=== PATIENT | male | born 1935 | race Hispanic/Latino ===

== ENCOUNTER 2016-10-04 09:46 | Observation (INO) | payer MEDICARE, MEDICAID ==
[2016-10-04] VITALS (10 sets, daily range): BP systolic 152–191; BP diastolic 67–90; PULSE 66–77; RESP 16–19; O2SAT 97–98
[~2016-10-04] VITALS: Ht 162.6 cm; Wt 82.6 kg
--- NOTE | 2016-10-04 10:12 | ED.REPORT ---
HPI-Neurologic Deficit Date of Service Oct 04, 2016 ED Provider: The patient is an 81 year old male with history of diabetes mellitus, hypertension, hyperlipidemia, chronic headaches, subdural hematoma in 2003, and intraparenchymal hypertensive hemorrhage in 2012, who was sent to the emergency department for confusion. The patient was seen at [facility] this morning for a normal appointment but was unable to answer questions appropriately. The patient states they asked him what medication he took this morning but he was unable to answer this question. He states, "I knew what I wanted to saw but I couldn't get it out." While walking to the clinic this morning he felt "off- balance." He has also noticed mild neck/occipital pain. Otherwise at this time he feels better. His blood sugar was 169 this morning. He did not eat breakfast and took Metformin this morning and that may have been the cause for this. He states, "last week I lost my vision while at the store." He thought this was due to low blood sugars but did not get a reading at that time. This lasted for about 10 minutes and after he ate a piece of chocolate his vision started to improve. He denies fever, chills, cough, congestion, shortness of breath, abdominal pain , nausea, vomiting or diarrhea. 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 Arrived By: Walk-in Sudden in Onset?: No Onset Occurred: 1 - 4 hours ago Symptom Duration: 1 - 4 hours Progression Since Onset: Gradually improving Location: : Head: Neck Quality: Painful Severity: Current: Mild Severity: Maximum: Moderate Recent Healthcare: No recent hospitalization, Recent doctor visit Risk Factors NIH Stroke Scale Level of Consciousness: Alert and responsive (0) Ask Month & Age: Both questions right (0) Open/Close Eyes/Hand Event Management Consultant: Performs both tasks (0) Horizontal EO Movements: None (0) Visual Bowers: No visual loss (0) Facial Palsy: Normal symmetry (0) Right Arm Motor Drift (10s): No drift 10 sec (0) Left Arm Motor Drift (10s): No drift 10 sec (0) Right Leg Motor Drift (5s): No drift 5 sec (0) Left Leg Motor Drift (5s): No drift 5 sec (0) Limb Ataxia FNF/Heel-Alfonso: No ataxia (0) Sensation (Arms/Legs/Face): No sensory loss (0) Language Aphasia: No aphasia, normal (0) Dysarthria: No dysarthria, normal (0) Extinction/Inattention: No exctinct/inattent (0) NIHSS Score: 0 Time NIHSS Performed: 10:22 Date NIHSS Performed: Oct 04, 2016 Past Medical History Past Medical History Chronic headache Subdural hematoma 2003 Intraparenchymal hypertensive hemorrhage 2012 Reports: Diabetes mellitus, Hyperlipidemia, Hypertension Past Surgical History brain surgery 2002 Family History Noncontributory Smoking History Never Smoker Social History Alcohol Use: Denies alcohol use Drug Use: Denies drug use Other Social History: Good social support, Local resident Ambulatory Status Independent Review of Systems Review of Systems Note: +difficulty getting words out Constitutional: Denies: Chills, Fever Respiratory: Denies: Non-productive cough, Shortness of breath GI: Denies: Abdominal pain, Diarrhea, Nausea, Vomiting Musculoskeletal: Reports: Neck pain Neurologic: Reports: Confusion, Headache, Vision change (last week) Complete sys rev & neg: except as marked. Ears / Nose / Throat: Denies: Nasal congestion Physical Exam Initial Vital Signs Vital Signs (First) Date Time Temp Pulse Resp B/P Pulse Ox O2 Delivery O2 Flow Rate FiO2 10/04/16 09:54 36.6 73 18 191/90 98 10/04/16 11:50 Room Air Initial VS: Reviewed ENT: Mucous membranes moist, Conjunctiva normal, No scleral icterus Neck: Supple, Non-tender, Full range of motion Abdomen / GI: Soft, Non-tender, No guarding, No rebound, No distention Lymphatic: No lymphadenopathy Extremities: Vascular intact, Neuro intact, No swelling, No tenderness Skin: Warm, Dry, No cyanosis Psychiatric: Mood/affect normal, Behavior normal, Normal thought content General/Constitutional: Awake, Alert, No acute distress, Cooperative Head / Eyes: Atraumatic, Normocephalic, PERRL, EOMI, No nystagmus Respiratory / Chest: Atraumatic, Breath sounds NL, Breath sounds = bilat, No respiratory distress, No rales, No rhonchi, No wheezing Cardiovascular: Heart rate NL, Regular rhythm, Heart sounds NL, No gallop, No murmurs, No rubs, Peripheral circulation NL Neurologic: Oriented X3, Speech NL, No motor deficits, No sensory deficits, CN II - XII intact, Cerebellar NL, Memory NL NIH stroke scale: 0 Interpretation & Diagnostics Lab Results Interpretation Result Diagram: 10/04/16 1030 10/04/16 1030 Test 10/04/16 10:30 10/04/16 11:40 White Blood Count 7.1th/mm3 (3.8-10.1) Red Blood Count 4.98mil/mm3 (4.40-5.80) Hemoglobin 14.2g/dL (13.8-17.2) Hematocrit 43.0% (41.0-50.0) Mean Corpuscular Volume 86.3fL (81-100) Mean Corpuscular Hemoglobin 28.5pg (27.0-35.0) Mean Corpuscular Hemoglobin Concent 33.0% (32.0-37.0) Red Cell Distribution Width 13.4% (12.3-15.4) Platelet Count 253bil/L (150-400) Neutrophils (%) (Auto) 65.2% (40-74) Lymphocytes (%) (Auto) 23.4% (14-46) Monocytes (%) (Auto) 8.3% (4-12) Eosinophils (%) (Auto) 2.4% (0-5) Basophils (%) (Auto) 0.6% (0-3) Sodium Level 139mEq/L (134-144) Potassium Level 4.2mEq/L (3.5-5.2) Chloride Level 103mEq/L (97-108) Carbon Dioxide Level 23mmol/L (18-29) Blood Urea Nitrogen 13mg/dL (8-27) Creatinine 0.79mg/dL (0.76-1.27) Estimat Glomerular Filtration Rate 100mL/min (>59) Glucose Level 179mg/dL (60-99) Calcium Level 8.9mg/dL (8.5-10.1) Magnesium Level 1.7mg/dL (1.6-2.6) Total Bilirubin 1.0mg/dL (0.0-1.2) Aspartate Amino Transf (AST/SGOT) 19U/L (0-50) Alanine Aminotransferase (ALT/SGPT) 17U/L (0-44) Alkaline Phosphatase 128U/L (25-160) Troponin T < 0.010ug/L (0.0-0.011) Total Protein 6.8g/dL (6.4-8.4) Albumin 3.9g/dL (3.4-5.0) Hold Roca Top Tube Received (Received) Urine Color Straw (YELLOW) Urine Appearance Hazy (CLEAR,HAZY) Urine pH 6.5 (5.0-8.0) Urine Specific [place] 1.010 (1.003-1.035) Urine Protein Negativemg/dL (NEG,TRACE) Urine Glucose (UA) Negativemg/dL (NEGATIVE) Urine Ketones Negativemg/dL (NEGATIVE) Urine Occult Blood Negative (NEGATIVE) Urine Nitrite Negative (NEGATIVE) Urine Bilirubin Negative (NEGATIVE) Urine Urobilinogen Normalmg/dL (NORMAL) Urine Leukocyte Esterase Negative (NEGATIVE) Urine RBC 0-2/hpf (0-2) Urine WBC 0-5/hpf (0-5) Urine Epithelial Cells Occasional/hpf (NONE-MOD) Urine Crystals None seen (NONE SEEN) Urine Bacteria None/hpf (NONE-FEW) Urine Hyaline Casts None/lpf (NONE) Urine Granular Casts None seen (NONE SEEN) Urine Waxy Casts None seen (NONE SEEN) Urine Red Blood Cell Casts None seen (NONE SEEN) Urine White Blood Cell Casts None seen (NONE SEEN) Urine Mucus None seen (None Seen) Urine Trichomonas None seen (NONE SEEN) Urine Yeast None (NONE SEEN) Urinalysis Comment None Urine Culture Reflexed Not indicated ECG Interpretation ECG Interpretation: Normal sinus rhythm with a rate of 65 Time: 10:26 Interpreted by: ED physician X-Ray Chest Interpretation Chest Xray Interpretation: IMPRESSION: No acute cardiopulmonary disease. Dictated by: Jorden ZIMMERMAN Interpreted: Sky Meehan MD on 10/04/2016 at 12:23 Interpretation / Wet Read by: Interpret - Radiologist CT Head Interpretation IMPRESSION: 1. No acute intracranial abnormality. 2. Age-related atrophy and chronic deep white matter ischemic changes, appearing unchanged. Dictated by: Migel Meehan M.D. on 10/04/2016 at 11:19 Study: Head CT no contrast Interpretation / Wet Read by: Interpret - Radiologist Re-Eval/Medical Decision Med Decision/Clinical Course Symptoms are somewhat concerning for TIA. The patient's presentation to the primary care office was concerning enough to warrant emergent transfer to the ER for a stroke workup however upon arrival and evaluation his symptoms had resolved. This along with an episode of vision change and dizziness a week ago may represent TIAs. Patient will be admitted for further stroke evaluation. Source of Hx: Old records, Family, Private physician Re-Evaluation/Progress #1: Time of Eval: 11:44 Re-Evaluation/Progress Note: Rechecked the patient. Re-Evaluation/Progress #2: Time of Eval: 11:56 Re-Evaluation/Progress Note: Discussed results, diagnosis, and plan for admission. All questions were addressed. Consultation : Referral / Consult Name: Greer Metcalf MD Consulted With: Hospitalist Call Returned at: 12:27 Porcelain Enamel Installer: Will see patient, Agrees with eval, Agrees with plan, Accepts admit Counseled Regarding: Diagnosis, Lab results, Need for admission Discharge & Departure Impression: Primary Impression: TIA (transient ischemic attack) Transient cerebral ischemia type: unspecified Qualified Code: G45.9 - Transient cerebral ischemic attack, unspecified Disposition: ADMITTED TO HOSPITAL Discharge Condition All VS Reviewed: Yes Condition: Stable Referrals: Romaine Cunningham MD (PCP) Scribe Attestation Portions of this note were transcribed by Michelle Lewis. I, Dr. Kelly personally performed the history, physical exam and medical decision-making; I reviewed and confirmed the accuracy of the information in the transcribed note. Signed by: Agnes Colón, 10/04/2016 and 1230. copies to: Romaine Cunningham MD, Timothy S DO Oct 04, 2016 10:12 Michelle Lewis Oct 04, 2016 10:28
[2016-10-04 10:44] LABS: BASOPHILS % (AUTO) 0.6 % (0-3); EOSINOPHILS % (AUTO) 2.4 % (0-5); MONOCYTES % (AUTO) 8.3 % (4-12); Mean Corpuscular Hemoglobin 28.5 pg (27.0-35.0); Mean Corpuscular Volume 86.3 fL (81-100); NEUTROPHILS % (AUTO) 65.2 % (40-74); Platelet Count 253 bil/L (150-400)
[2016-10-04 11:16] LABS: Magnesium 1.7 mg/dL (1.6-2.6)
[2016-10-04 11:22] LABS: TROPONIN T < 0.010 ug/L (0.0-0.011)
--- NOTE | 2016-10-04 11:24 | DRSVH ---
PROCEDURE: CT BRAIN WITHOUT CONTRAST ([id number]) INDICATIONS: confusion, h/o ICH TECHNIQUE: Noncontrast 4.5 mm thick angled axial sections acquired from the foramen magnum to the vertex, with c oronal reformats. COMPARISON: CT brain 10/05/2014, 02/23/2014, 11/05/2012, 12/18/2009, 12/22/2003 FINDINGS: Image quality: Excellent. CSF spaces: Basal cisterns are patent. No extra-axial fluid collections. The ventricles are symmet jas in size and shape. Brain: No intracranial bleeds or masses. There is cerebral volume loss for age, with resultant vent ricular and sulcal prominence. There are periventricular and deep white matter chronic small vessel ischemic changes. There is intracranial internal carotid artery atherosclerosis. Skull and face: Calvarium and visualized facial bones appear intact, without suspicious lesions. Sinuses: Visualized sinuses and mastoids are clear. IMPRESSION: 1. No acute intracranial abnormality. 2. Age-related atrophy and chronic deep white matter ischemic changes, appearing unchanged. Dictated by: Migel Meehan M.D. on 10/04/2016 at 11:19 Approved by: Migel Meehan M.D. on 10/04/2016 at 11:22
[2016-10-04 12:06] LABS: APPEARANCE,URINE HAZY (CLEAR,HAZY); COLOR,URINE STRAW (YELLOW); OCCULT BLOOD,URINE NEGATIVE (NEGATIVE); PH,URINE 6.5 (5.0-8.0); UROBILINOGEN,URINE NORMAL (NORMAL)
[2016-10-04] MEDS ORDERED: [UNRECOGNIZED DRUG - CODE] (12:16)
[2016-10-04] MEDS ORDERED: LISI10TA (12:16)
--- NOTE | 2016-10-04 12:23 | DRSVH ---
PROCEDURE: X-RAY CHEST ONE VIEW, PORTABLE ([id number]) INDICATIONS: confusion TECHNIQUE: One view of the chest was acquired. COMPARISON: [facility], CR, CHEST 2VW, 11/16/2014, 12:53. [facility], CR, CH EST 1VW (PORTABLE), 11/05/2012, 12:52. FINDINGS: Surgical changes and devices: None. Lungs and pleura: No pleural effusions or pneumothorax. Lungs are clear. Mediastinum: Mediastinal contours appear normal. Heart size is normal. Bones and chest wall: No suspicious bony lesions. Overlying soft tissues appear unremarkable. IMPRESSION: No acute cardiopulmonary disease. Dictated by: Jorden ZIMMERMAN Interpreted: Sky Meehan MD on 10/04/2016 at 12:23 Transcribed by: NORMA on 10/04/2016 at 12:23 Approved by: Migel Meehan M.D. on 10/04/2016 at 14:17
[2016-10-04] MEDS ORDERED: Alum-Mag Hydrox-Simeth 30 mL Suspension PO PRN ×2 (13:10→15:05)
[2016-10-04] MEDS ORDERED: Ondansetron 2 mg/mL 2 mL Inj IVPUSH PRN (13:10)
--- NOTE | 2016-10-04 14:00 | NUR ---
Admit Admitted to floor. Pt denies pain and is A&Ox3. Pt is Malagasy-speaking only. Caption Writer called for admission. Pt instructed on how to contact nursing staff. Will continue to monitor.
--- NOTE | 2016-10-04 14:11 | NUR ---
Evaluation completed. Please go to "Notes" then click on "Assessments and Notes" (bottom left corner of screen). Then select appropriate discipline tab on top of screen.
[2016-10-04] MEDS ORDERED: METF1000 PO (14:33)
[2016-10-04] MEDS ORDERED: Polyethylene Glycol (PEG) 17 Gm Powder PO PRN (15:05)
[2016-10-04] MEDS ORDERED: Ondansetron 2 mg/mL 2 mL Inj IV PRN (15:05)
[2016-10-04] MEDS ORDERED: Glucose 40% Oral Gel 15 Gm Tube PO PRN (15:05)
--- NOTE | 2016-10-04 15:46 | PCM.HPMED ---
Subjective Date of Service Oct 04, 2016 Primary Provider: Admitting Physician: Greer Metcalf MD Primary Care Physician: Romaine Cunningham MD Attending Physician: Greer Metcalf MD Admit Status: From the Emergency Department, 23-Hour Observation, Admit to [facility], Remote Telemetry Chief Complaint: Episode of unable to formulate and say words History of Present Illness: This is an 81-year-old male who is speaking only. Tiller Man is present. History of type II diabetes hypertension hyperlipidemia. He is not exactly compliant with his medications. He did have a history of a subdural hematoma in 2003 and an intra-parenchymal hypertensive hemorrhage in 2012 he was at [facility] for his usual appointment for medication renewals and was unable to answer questions appropriately. He notes that that words would not come out. He also felt a little bit confused. He also felt somewhat lightheaded but not vertiginous. This lasted for about 3 hours. He was brought into the emergency room from [facility]. He has not been taking aspirin. He apparently has not been taking his lisinopril or metformin either as he has not been able to get it filled through [facility]. His evaluation in the emergency room includes CT of head without contrast shows no acute intracranial abnormality. There was noted age-related atrophy and chronic deep white matter ischemic changes which are appearing unchanged from previous. He also admits to a slight headache but this is improving. Review of Systems: All other review of systems are reviewed and are negative except for as in history of present illness. Denies any head injury denies any fevers chills. Denies any urinary frequency or burning. Denies any chest pain nausea or vomiting. Denied any leg or arm weakness. Allergies Coded Allergies: No Known Allergies (Verified , 10/04/16) Home Medications Metformin 1000 milligrams by mouth twice a day Lisinopril 10 mg by mouth daily PMH Past Medical History Chronic headache Subdural hematoma 2004 Intraparenchymal hypertensive hemorrhage 2012 Reports: Diabetes mellitus, Hyperlipidemia, Hypertension Past Surgical History brain surgery 2003 Family History History of type II diabetes and hypertension Social History Hx Alcohol Use: Yes ("not since I was young") Hx Substance Use: No Hx Tobacco Use: No Smoking Status: Never Smoker Living Arrangement: Alone Exam Vital Signs Vital Sign - Last Date Time Temp Pulse Resp B/P Pulse Ox O2 Delivery O2 Flow Rate FiO2 10/04/16 13:46 66 161/67 98 Room Air 10/04/16 11:50 19 10/04/16 09:54 36.6 Exam Constitutional: Elderly man in no acute distress Head: Normocephalic atraumatic Eyes: PERRLA DC EOMI Neck: No adenopathy carotids 2+ over 4 without bruits Mouth: No lesions Chest: Clear to auscultation Cor: Regular rate and rhythm S1-S2 without murmur Abdomen: Soft nontender bowel sounds present Extremities: No pedal edema Skin: No rashes noted Psych: Mood and affect are appropriate Neuro: Alert and oriented 3, motor and sensory are intact. Finger to nose is intact. Speech is normal. Lab and Diagnostics Labs Laboratory Tests 72 Hours Test 10/04/16 10:30 10/04/16 11:40 White Blood Count 7.1th/mm3 (3.8-10.1) Red Blood Count 4.98mil/mm3 (4.40-5.80) Hemoglobin 14.2g/dL (13.8-17.2) Hematocrit 43.0% (41.0-50.0) Mean Corpuscular Volume 86.3fL (81-100) Mean Corpuscular Hemoglobin 28.5pg (27.0-35.0) Mean Corpuscular Hemoglobin Concent 33.0% (32.0-37.0) Red Cell Distribution Width 13.4% (12.3-15.4) Platelet Count 253bil/L (150-400) Neutrophils (%) (Auto) 65.2% (40-74) Lymphocytes (%) (Auto) 23.4% (14-46) Monocytes (%) (Auto) 8.3% (4-12) Eosinophils (%) (Auto) 2.4% (0-5) Basophils (%) (Auto) 0.6% (0-3) Sodium Level 139mEq/L (134-144) Potassium Level 4.2mEq/L (3.5-5.2) Chloride Level 103mEq/L (97-108) Carbon Dioxide Level 23mmol/L (18-29) Blood Urea Nitrogen 13mg/dL (8-27) Creatinine 0.79mg/dL (0.76-1.27) Estimat Glomerular Filtration Rate 100mL/min (>59) Glucose Level 179mg/dL (60-99) Calcium Level 8.9mg/dL (8.5-10.1) Magnesium Level 1.7mg/dL (1.6-2.6) Total Bilirubin 1.0mg/dL (0.0-1.2) Aspartate Amino Transf (AST/SGOT) 19U/L (0-50) Alanine Aminotransferase (ALT/SGPT) 17U/L (0-44) Alkaline Phosphatase 128U/L (25-160) Troponin T < 0.010ug/L (0.0-0.011) Total Protein 6.8g/dL (6.4-8.4) Albumin 3.9g/dL (3.4-5.0) Hold Roca Top Tube Received (Received) Urine Color Straw (YELLOW) Urine Appearance Hazy (CLEAR,HAZY) Urine pH 6.5 (5.0-8.0) Urine Specific [place] 1.010 (1.003-1.035) Urine Protein Negativemg/dL (NEG,TRACE) Urine Glucose (UA) Negativemg/dL (NEGATIVE) Urine Ketones Negativemg/dL (NEGATIVE) Urine Occult Blood Negative (NEGATIVE) Urine Nitrite Negative (NEGATIVE) Urine Bilirubin Negative (NEGATIVE) Urine Urobilinogen Normalmg/dL (NORMAL) Urine Leukocyte Esterase Negative (NEGATIVE) Urine RBC 0-2/hpf (0-2) Urine WBC 0-5/hpf (0-5) Urine Epithelial Cells Occasional/hpf (NONE-MOD) Urine Crystals None seen (NONE SEEN) Urine Bacteria None/hpf (NONE-FEW) Urine Hyaline Casts None/lpf (NONE) Urine Granular Casts None seen (NONE SEEN) Urine Waxy Casts None seen (NONE SEEN) Urine Red Blood Cell Casts None seen (NONE SEEN) Urine White Blood Cell Casts None seen (NONE SEEN) Urine Mucus None seen (None Seen) Urine Trichomonas None seen (NONE SEEN) Urine Yeast None (NONE SEEN) Urinalysis Comment None Urine Culture Reflexed Not indicated Result Diagram: 10/04/16 1030 10/04/16 1030 X-Rays, CTs and MRIs PROCEDURE: CT BRAIN WITHOUT CONTRAST ([id number]) INDICATIONS: confusion, h/o ICH TECHNIQUE: Noncontrast 4.5 mm thick angled axial sections acquired from the foramen magnum to the vertex, with coronal reformats. COMPARISON: CT brain 10/05/2014, 02/23/2014, 11/05/2012, 12/18/2009, 12/22/2003 FINDINGS: Image quality: Excellent. CSF spaces: Basal cisterns are patent. No extra-axial fluid collections. The ventricles are symmetric in size and shape. Brain: No intracranial bleeds or masses. There is cerebral volume loss for age , with resultant ventricular and sulcal prominence. There are periventricular and deep white matter chronic small vessel ischemic changes. There is intracranial internal carotid artery atherosclerosis. Skull and face: Calvarium and visualized facial bones appear intact, without suspicious lesions. Sinuses: Visualized sinuses and mastoids are clear. IMPRESSION: 1. No acute intracranial abnormality. 2. Age-related atrophy and chronic deep white matter ischemic changes, appearing unchanged. Dictated by: Migel Meehan M.D. on 10/04/2016 at 11:19 Approved by: Migel Meehan M.D. on 10/04/2016 at 11:22 PROCEDURE: X-RAY CHEST ONE VIEW, PORTABLE ([id number]) INDICATIONS: confusion TECHNIQUE: One view of the chest was acquired. COMPARISON: [facility], , CHEST 2VW, 11/16/2014, 12:53. [facility], , CHEST 1VW (PORTABLE), 11/05/2012, 12:52. FINDINGS: Surgical changes and devices: None. Lungs and pleura: No pleural effusions or pneumothorax. Lungs are clear. Mediastinum: Mediastinal contours appear normal. Heart size is normal. Bones and chest wall: No suspicious bony lesions. Overlying soft tissues appear unremarkable. IMPRESSION: No acute cardiopulmonary disease. Dictated by: Jorden Boswell Jayjay Interpreted: Sky Meehan MD on 10/04/2016 at 12: 23 Transcribed by: NORMA on 10/04/2016 at 12:23 Approved by: Migel Meehan M.D. on 10/04/2016 at 14:17 12-lead ECG Normal sinus rhythm with rate of 65 Assessment & Plan # Possible TIA, present on admission, symptoms resolved Check CTA of brain and neck, MRI brain without contrast, echocardiogram. Placed on telemetry. Check fasting lipid panel. Initiate atorvastatin 40 mg by mouth daily and ASA 324 mg by mouth daily # Type II diabetes, present on admission, chronic We will hold metformin as will get IV contrast dye. We will place on subcutaneous insulin lispro protocol Check 4 times a day blood sugars Check hemoglobin A1c # Hypertension, present on admission, chronic Will reinstitute his lisinopril 10 mg by mouth daily starting tomorrow # DVT prophylaxis Placed on subcutaneous Lovenox # CODE STATUS Patient is full code. Time spent 60 minutes Greer Metcalf MD Oct 04, 2016 15:46
[2016-10-04] MEDS: Insulin LISPRO 300 Unit/3 mL Inj SUBQ SCH ×2 (17:22→21:31)
[2016-10-05] VITALS (8 sets, daily range): BP systolic 138–167; BP diastolic 66–87; PULSE 64–92; RESP 16; O2SAT 97–98
[2016-10-05] MEDS: Insulin LISPRO 300 Unit/3 mL Inj SUBQ SCH ×4 (08:33→20:41)
--- NOTE | 2016-10-05 09:05 | NUR ---
MRI Pt off floor for MRI.
--- NOTE | 2016-10-05 10:47 | DRSVH ---
PROCEDURE: MRI BRAIN WITHOUT CONTRAST ([id number]) INDICATIONS: 81 year-old male with TIA. TECHNIQUE: Non-contrast axial T1 spin echo, axial T2 fast spin echo, sagittal and axial FLAIR, coronal T2 fast s pin echo, axial gradient echo, axial diffusion and ADC through the brain. COMPARISON: [facility], CT, CT BRAIN WO CON, 10/04/2016, 11:05. [facility], CT, BRAIN W/O CONTRAST, 10/05/2014, 14:10. FINDINGS: Image quality: Excellent. CSF spaces: Ventricles appear symmetric in size and shape. Basal cisterns are patent. No extra-axi al fluid collections. Brain: No intracranial bleeds or mass effects. There is mild cerebral volume loss for age. There a re moderate periventricular and deep white matter chronic small vessel ischemic changes. Brainstem a ppears normal. Diffusion-weighted images show no acute ischemic insults. No chronic ischemic insult s. Normal intravascular flow voids are present. Skull and face: Calvarial bone marrow is normal in signal. Orbits are normal. Sinuses: There is a mucous retention cyst in the left maxillary sinus. The mastoids are clear. IMPRESSION: 1. No acute intracranial abnormalities. 2. Cerebral volume loss and chronic microvascular ischemic changes. 3. Left maxillary sinus mucous retention cyst. Dictated by: Adela Devries M.D. on 10/05/2016 at 10:39 Approved by: Adela Devries M.D. on 10/05/2016 at 10:46
--- NOTE | 2016-10-05 11:08 | NUR ---
Case Management: SAVI delivered (via diplomatic interpreter) and signed. Original placed in chart; copy left at bedside. Karla Garcia RN
--- NOTE | 2016-10-05 11:28 | PCM.PNMED ---
Subjective Date of Service Oct 05, 2016 Subjective Patient has had no symptoms since admitted here. He notes he is feeling fine. Exam Vital Signs Vital Sign - Last Date Time Temp Pulse Resp B/P Pulse Ox O2 Delivery O2 Flow Rate FiO2 10/05/16 10:04 92 10/05/16 08:30 167/86 98 Room Air 10/05/16 04:58 37.1 16 Intake and Output 10/04/16 10/04/16 10/05/16 Cumulative From/Thru 15:00 23:00 07:00 10/04/16 09:54 - 10/05/16 05:45 Intake Total 480 ml 250 ml 730 ml Balance 480 ml 250 ml 730 ml Intake Oral 480 ml 250 ml 730 ml # Voids 1 1 2 # Bowel Movements 0 0 Exam Constitutional: Elderly man in no acute distress Head: Normocephalic atraumatic Eyes: PERRLA DC EOMI Chest: Clear to auscultation Marquez: Regular rate and rhythm S1-S2 without murmur Abdomen: Soft nontender bowel sounds present Extremities: No pedal edema Neuro: Alert and oriented 3, motor strength is intact bilaterally, sensory is intact bilaterally. Speech and cognition appear intact. Lab and Diagnostics Laboratory Tests 72 Hours Test 10/04/16 10:30 10/04/16 11:40 White Blood Count 7.1th/mm3 (3.8-10.1) Red Blood Count 4.98mil/mm3 (4.40-5.80) Hemoglobin 14.2g/dL (13.8-17.2) Hematocrit 43.0% (41.0-50.0) Mean Corpuscular Volume 86.3fL (81-100) Mean Corpuscular Hemoglobin 28.5pg (27.0-35.0) Mean Corpuscular Hemoglobin Concent 33.0% (32.0-37.0) Red Cell Distribution Width 13.4% (12.3-15.4) Platelet Count 253bil/L (150-400) Neutrophils (%) (Auto) 65.2% (40-74) Lymphocytes (%) (Auto) 23.4% (14-46) Monocytes (%) (Auto) 8.3% (4-12) Eosinophils (%) (Auto) 2.4% (0-5) Basophils (%) (Auto) 0.6% (0-3) Sodium Level 139mEq/L (134-144) Potassium Level 4.2mEq/L (3.5-5.2) Chloride Level 103mEq/L (97-108) Carbon Dioxide Level 23mmol/L (18-29) Blood Urea Nitrogen 13mg/dL (8-27) Creatinine 0.79mg/dL (0.76-1.27) Estimat Glomerular Filtration Rate 100mL/min (>59) Glucose Level 179mg/dL (60-99) Hemoglobin A1c 7.8% (4.8-5.6) Calcium Level 8.9mg/dL (8.5-10.1) Magnesium Level 1.7mg/dL (1.6-2.6) Total Bilirubin 1.0mg/dL (0.0-1.2) Aspartate Amino Transf (AST/SGOT) 19U/L (0-50) Alanine Aminotransferase (ALT/SGPT) 17U/L (0-44) Alkaline Phosphatase 128U/L (25-160) Troponin T < 0.010ug/L (0.0-0.011) Total Protein 6.8g/dL (6.4-8.4) Albumin 3.9g/dL (3.4-5.0) Triglycerides Level 116mg/dL (0-149) Cholesterol Level 149mg/dL (100-199) LDL Cholesterol, Calculated 83.800mg/dL (0-99) VLDL Cholesterol 23.200mg/dL HDL Cholesterol 42mg/dL (>39) Cholesterol/HDL Ratio 3.55 (0.0-4.4) Hold Roca Top Tube Received (Received) Urine Color Straw (YELLOW) Urine Appearance Hazy (CLEAR,HAZY) Urine pH 6.5 (5.0-8.0) Urine Specific [place] 1.010 (1.003-1.035) Urine Protein Negativemg/dL (NEG,TRACE) Urine Glucose (UA) Negativemg/dL (NEGATIVE) Urine Ketones Negativemg/dL (NEGATIVE) Urine Occult Blood Negative (NEGATIVE) Urine Nitrite Negative (NEGATIVE) Urine Bilirubin Negative (NEGATIVE) Urine Urobilinogen Normalmg/dL (NORMAL) Urine Leukocyte Esterase Negative (NEGATIVE) Urine RBC 0-2/hpf (0-2) Urine WBC 0-5/hpf (0-5) Urine Epithelial Cells Occasional/hpf (NONE-MOD) Urine Crystals None seen (NONE SEEN) Urine Bacteria None/hpf (NONE-FEW) Urine Hyaline Casts None/lpf (NONE) Urine Granular Casts None seen (NONE SEEN) Urine Waxy Casts None seen (NONE SEEN) Urine Red Blood Cell Casts None seen (NONE SEEN) Urine White Blood Cell Casts None seen (NONE SEEN) Urine Mucus None seen (None Seen) Urine Trichomonas None seen (NONE SEEN) Urine Yeast None (NONE SEEN) Urinalysis Comment None Urine Culture Reflexed Not indicated Result Diagram: 10/04/16 1030 10/04/16 1030 X-Rays, CTs and MRIs PROCEDURE: CT BRAIN WITHOUT CONTRAST ([id number]) INDICATIONS: confusion, h/o ICH TECHNIQUE: Noncontrast 4.5 mm thick angled axial sections acquired from the foramen magnum to the vertex, with coronal reformats. COMPARISON: CT brain 10/05/2014, 02/23/2014, 11/05/2012, 12/18/2009, 12/22/2003 FINDINGS: Image quality: Excellent. CSF spaces: Basal cisterns are patent. No extra-axial fluid collections. The ventricles are symmetric in size and shape. Brain: No intracranial bleeds or masses. There is cerebral volume loss for age , with resultant ventricular and sulcal prominence. There are periventricular and deep white matter chronic small vessel ischemic changes. There is intracranial internal carotid artery atherosclerosis. Skull and face: Calvarium and visualized facial bones appear intact, without suspicious lesions. Sinuses: Visualized sinuses and mastoids are clear. IMPRESSION: 1. No acute intracranial abnormality. 2. Age-related atrophy and chronic deep white matter ischemic changes, appearing unchanged. Dictated by: Migel Meehan M.D. on 10/04/2016 at 11:19 Approved by: Migel Meehan M.D. on 10/04/2016 at 11:22 PROCEDURE: X-RAY CHEST ONE VIEW, PORTABLE ([id number]) INDICATIONS: confusion TECHNIQUE: One view of the chest was acquired. COMPARISON: [facility], , CHEST 2VW, 11/16/2014, 12:53. [facility], , CHEST 1VW (PORTABLE), 11/05/2012, 12:52. FINDINGS: Surgical changes and devices: None. Lungs and pleura: No pleural effusions or pneumothorax. Lungs are clear. Mediastinum: Mediastinal contours appear normal. Heart size is normal. Bones and chest wall: No suspicious bony lesions. Overlying soft tissues appear unremarkable. IMPRESSION: No acute cardiopulmonary disease. Dictated by: Jorden Boswell [facility] Interpreted: Sky Meehan MD on 10/04/2016 at 12: 23 Transcribed by: NORMA on 10/04/2016 at 12:23 Approved by: Migel Meehan M.D. on 10/04/2016 at 14:17 PROCEDURE: MRI BRAIN WITHOUT CONTRAST ([id number]) INDICATIONS: 81 year-old male with TIA. TECHNIQUE: Non-contrast axial T1 spin echo, axial T2 fast spin echo, sagittal and axial FLAIR, coronal T2 fast spin echo, axial gradient echo, axial diffusion and ADC through the brain. COMPARISON: [facility], CT, CT BRAIN WO CON, 10/04/2016, 11:05. [facility], CT, BRAIN W/O CONTRAST, 10/05/2014, 14:10. FINDINGS: Image quality: Excellent. CSF spaces: Ventricles appear symmetric in size and shape. Basal cisterns are patent. No extra-axial fluid collections. Brain: No intracranial bleeds or mass effects. There is mild cerebral volume loss for age. There are moderate periventricular and deep white matter chronic small vessel ischemic changes. Brainstem appears normal. Diffusion-weighted images show no acute ischemic insults. No chronic ischemic insults. Normal intravascular flow voids are present. Skull and face: Calvarial bone marrow is normal in signal. Orbits are normal. Sinuses: There is a mucous retention cyst in the left maxillary sinus. The mastoids are clear. IMPRESSION: 1. No acute intracranial abnormalities. 2. Cerebral volume loss and chronic microvascular ischemic changes. 3. Left maxillary sinus mucous retention cyst. Dictated by: Adela Devries M.D. on 10/05/2016 at 10:39 Approved by: Adela Devries M.D. on 10/05/2016 at 10:46 12-lead ECG Normal sinus rhythm with rate of 65 Assessment & Plan # Possible TIA, present on admission, symptoms resolved Check CTA of brain and neck, MRI brain without contrast, echocardiogram. Placed on telemetry. Check fasting lipid panel. Initiate atorvastatin 40 mg by mouth daily and ASA 324 mg by mouth daily Awaiting results of CTA of head and neck and echocardiogram. # Type II diabetes, present on admission, chronic We will hold metformin as will get IV contrast dye. We will place on subcutaneous insulin lispro protocol Check 4 times a day blood sugars Check hemoglobin A1c and results are 7.8 so is elevated. # Hypertension, present on admission, chronic Will reinstitute his lisinopril 10 mg by mouth daily starting tomorrow # DVT prophylaxis Placed on subcutaneous Lovenox # CODE STATUS Patient is full code. VTE Mechanical Devices: Intermittant Pneumatic CD Time spent 30 minutes Greer Metcalf MD Oct 05, 2016 11:28
--- NOTE | 2016-10-05 11:33 | NUR ---
Social Work: Initial Assessment / Readiness for d/c Data: Pt is an 81 y/o male admitted for TIA. Pt's PCP is Dr Cunningham, pt's insurance is Medicare with [employer] supp. Readmit score is 2. EMR reviewed, pt discussed in rounds. MD states pt likely to d/c later today or tomorrow. TRUER PINION AND WHEEL met with pt at bedside, role explained. Pt states that he lives in [place] alone in a single story home. Pt reports that he does not drive, has no history of HH or SNF, no LTC or VA benefits, and is not a caregiver for shelley. Pt states he has family that will drive him home at d/c. Pt has been up independent at walking in the hallways. No further d/c planning needs identified at this time. TRUER PINION [employer] WHEEL will continue to follow if needs arise. Assessment: Pt who is independent at baseline. Plan: Pt will d/c home via POV when medically stable, likely today or tomorrow per MD. No further d/c planning needs identified at this time. TR[employer]INION [employer] WHEEL will continue to follow if needs arise. DENA Stewart Addendum: 10/05/16 at 1136 by BIBI ANTOINE Amended: Links added.
--- NOTE | 2016-10-05 13:37 | DRSVH ---
PROCEDURE: CT ANGIO HEAD AND NECK (P) INDICATIONS: Stroke/TIA TECHNIQUE: Pre-contrast 4.5 mm thick sections acquired from the foramen magnum to the vertex. After the adminis tration of intravenous contrast, 1 mm thick sections acquired from the aortic arch through the [place] of [place]. Post-contrast 4.5 mm thick sections then re-acquired from the foramen magnum to the vert ex. 3-dimensional eqievss-qnkswaowq-evrudsxnwr (MIP) and/or volume rendering reformats were acquired of the central intracranial vasculature and neck separately. For radiation dose reduction, the foll owing was used: automated exposure control, adjustment of mA and/or kV according to patient size. COMPARISON: None. FINDINGS: Image quality: Excellent. BRAIN: CSF spaces: Ventricles are normal in shape. Diffuse prominence of CSF space noted. Basal cisterns ar e patent. No extra-axial fluid collections. Brain: No midline shift. Periventricular and subcortical white matter chronic microvascular ischemic changes noted. No intracranial bleeds or masses. Perez-white matter interface appears intact. Skull and face: Calvarium and facial bones appear intact, without suspicious lesions. Orbits appear normal. Sinuses: Mucous retention cyst versus polyp is noted in the left maxillary sinus. The mastoids are cl ear. HEAD CT ANGIOGRAPHY: Anterior circulation: Intracranial internal carotid arteries are normal in size and flow. The flow within the paired anterior cerebral arteries is normal and symmetric. The flow within the middle cer ebral arteries is normal and symmetric. The anterior communicating artery is seen. No aneurysms are seen. Posterior circulation: Visualized portions of the vertebral arteries demonstrate normal caliber, and join to form a normal appearing basilar artery. Flow within the posterior cerebral arteries is norm al and symmetric. No aneurysms are seen. There is normal contrast enhancement of the dural sinuses. NECK CT ANGIOGRAPHY: Carotid system: The great vessels demonstrate a conventional anatomy as they arise from the aortic a rch. The origins of the common carotid arteries appear patent. The common carotid arteries demonstr ate normal caliber and courses. The bifurcation regions are both widely patent. Atherosclerotic calc ifications noted in the origins of the left internal carotid artery causes less than 50% stenosis of the vessel. The right internal carotid artery appears fully patent. Posterior circulation: The origins of the vertebral arteries both appear widely patent. The more mishra perior extracranial portions of both vertebral arteries also demonstrate normal courses and calibers. They join to form a normal appearing basilar artery. Soft tissues: Visualized neck soft tissues demonstrate no suspicious abnormalities. Bones: No suspicious bony lesions. Degenerative disc disease and facet arthropathy are noted in the visualized spine. Visualized cervical spine appears normally aligned. IMPRESSION: No hemodynamically significant vascular stenosis. No vascular occlusion. Dictated by: Sherie Clifford MD, PhD on 10/05/2016 at 13:21 Approved by: Sherie Clifford MD, PhD on 10/05/2016 at 13:35
--- NOTE | 2016-10-05 15:29 | NUR ---
Activity Pt independent in room. Denies pain. Medical Research Associate on a stick used for translating. Bed locked in low position and call light within reach. Will continue to monitor.
--- NOTE | 2016-10-05 16:54 | NUR ---
Anxiety/irritability Family reported that the pt is becoming anxious/irritable, which can be normal for this pt. They want to medicate him. Pt wanted to take a shower and before this nurse could intervene he took of his leads and went into the shower. TECHNICAL SOLUTIONS CONSULTANT is standing by for when the pt is done so that his leads can be put back on. Hospitalist notified of anxiety.
[2016-10-05] MEDS ORDERED: ALPRAZolam 0.5 mg Tablet PO PRN (17:05)
--- NOTE | 2016-10-05 19:09 | NUR ---
Headache Pt reported CHURCH at 3-10, "just a little bit," left eye pain. Denies blurry vision. Pt says he had surgery on left eye and that it never healed properly. Pt believes it is a migraine. No neurological deficits. Pt is A&Ox3. Equal facial/body movements and strength. BP 154/78, 76 BPM. During interview, pt reported that his pain was going away. Hospitalist was notified when pt complained of symptoms and was told to observe for neurological changes. Pt will be monitored.
[2016-10-06 04:13] VITALS: BP 131/78; PULSE 63; RESP 16; O2SAT 98
--- NOTE | 2016-10-06 05:54 | NUR ---
Neuro Pt reports some mild L sided eye pain which he states he has on and off. Otherwise no neuro deficits noted/reported, senior stereo compiler team lead equal, speech clear.
[2016-10-06 06:11] VITALS: PULSE 77
[2016-10-06 07:07] VITALS: PULSE 73
[2016-10-06 08:00] VITALS: PULSE 70
[2016-10-06 08:03] VITALS: BP 138/72; PULSE 67; O2SAT 96
[2016-10-06] MEDS: Insulin LISPRO 300 Unit/3 mL Inj SUBQ SCH ×2 (09:07→12:03)
--- NOTE | 2016-10-06 11:20 | NUR ---
Echocardiogram Echo scheduled for today. patient is alert and oriented X3. Able to make needs known. family at bed side and asking for discharge time. Doctor aware. blood sugars 181 this AM. Insulin given as ordered. Station Installer at bed side this AM. Denies pain or discomfort. stable vital signs. Neuros WNL. patient is independent walking in room and in the [address]. uses urinal. Continent of bowel and bladder. last BM yesterday per patient. no sign and symptoms of respiratory distress noted. denies chest pain or chest discomfort. IV saline locked. Received all PO medications whole with water with out swallowing difficulty. Tele SR [id number]. notified doctor that patient wants to go home insulin for better blood sugar control. doctor aware. Called Echocardiogram and states," will be here shortly." Denies abdominal discomfort/nausea or vomiting. Call light with in reach for safety and verbalize the use of call light while astrobiologist present. continue to monitor vital signs, neuros, blood sugars as ordered, and mentation.
--- NOTE | 2016-10-06 11:39 | PCM.DIMED ---
Discharge Instructions Date of Service Oct 06, 2016 Dates of Hospitalization Oct 04, 2016 at 12:50 Discharge Diagnosis Discharge Diagnosis Possible TIA Diet Heart Healthy, Diabetic Activity Other (as tolerated) Call your provider Fever or Chills, Shortness of breath, Chest pain, Vomitting, Excessive diarrhea , Weakness (unilateral) Patient Instructions Follow-up with PCP in: 1 week Additional Information To have Urgent outpatient echocardiogram done tomorrow at 1 PM here at [facility] Greer Metcalf MD Oct 06, 2016 11:39
[2016-10-06] MEDS ORDERED: LISI-610 PO (11:46)
[2016-10-06] MEDS ORDERED: ASPI81TA3 PO ×2 (11:46→11:47)
[2016-10-06] MEDS ORDERED: ATOR40TA69 PO (11:46)
--- NOTE | 2016-10-06 11:51 | PCM.DC.MED ---
Discharge Summary Date of Service Oct 06, 2016 Dates of Hospitalization Date of Hospital Admission Oct 04, 2016 at 12:50 Date of Discharge: Oct 06, 2016 Providers: Admitting Physician: Greer Metcalf MD Primary Care Physician: Romaine Cunningham MD Attending Physician: Greer Metcalf MD Diagnosis at Time of Discharge Diagnosis at Time of Discharge Possible TIA Procedures XRay, CTs & MRIs PROCEDURE: CT BRAIN WITHOUT CONTRAST ([id number]) INDICATIONS: confusion, h/o ICH TECHNIQUE: Noncontrast 4.5 mm thick angled axial sections acquired from the foramen magnum to the vertex, with coronal reformats. COMPARISON: CT brain 10/05/2014, 02/23/2014, 11/05/2012, 12/18/2009, 12/22/2003 FINDINGS: Image quality: Excellent. CSF spaces: Basal cisterns are patent. No extra-axial fluid collections. The ventricles are symmetric in size and shape. Brain: No intracranial bleeds or masses. There is cerebral volume loss for age , with resultant ventricular and sulcal prominence. There are periventricular and deep white matter chronic small vessel ischemic changes. There is intracranial internal carotid artery atherosclerosis. Skull and face: Calvarium and visualized facial bones appear intact, without suspicious lesions. Sinuses: Visualized sinuses and mastoids are clear. IMPRESSION: 1. No acute intracranial abnormality. 2. Age-related atrophy and chronic deep white matter ischemic changes, appearing unchanged. Dictated by: Migel Meehan M.D. on 10/04/2016 at 11:19 Approved by: Migel Meehan M.D. on 10/04/2016 at 11:22 PROCEDURE: X-RAY CHEST ONE VIEW, PORTABLE ([id number]) INDICATIONS: confusion TECHNIQUE: One view of the chest was acquired. COMPARISON: [facility], , CHEST 2VW, 11/16/2014, 12:53. [facility], , CHEST 1VW (PORTABLE), 11/05/2012, 12:52. FINDINGS: Surgical changes and devices: None. Lungs and pleura: No pleural effusions or pneumothorax. Lungs are clear. Mediastinum: Mediastinal contours appear normal. Heart size is normal. Bones and chest wall: No suspicious bony lesions. Overlying soft tissues appear unremarkable. IMPRESSION: No acute cardiopulmonary disease. Dictated by: Jorden ZIMMERMAN Interpreted: Sky Meehan MD on 10/04/2016 at 12: 23 Transcribed by: NORMA on 10/04/2016 at 12:23 Approved by: Migel Meehan M.D. on 10/04/2016 at 14:17 PROCEDURE: MRI BRAIN WITHOUT CONTRAST ([id number]) INDICATIONS: 81 year-old male with TIA. TECHNIQUE: Non-contrast axial T1 spin echo, axial T2 fast spin echo, sagittal and axial FLAIR, coronal T2 fast spin echo, axial gradient echo, axial diffusion and ADC through the brain. COMPARISON: [facility], CT, CT BRAIN WO CON, 10/04/2016, 11:05. [facility], CT, BRAIN W/O CONTRAST, 10/05/2014, 14:10. FINDINGS: Image quality: Excellent. CSF spaces: Ventricles appear symmetric in size and shape. Basal cisterns are patent. No extra-axial fluid collections. Brain: No intracranial bleeds or mass effects. There is mild cerebral volume loss for age. There are moderate periventricular and deep white matter chronic small vessel ischemic changes. Brainstem appears normal. Diffusion-weighted images show no acute ischemic insults. No chronic ischemic insults. Normal intravascular flow voids are present. Skull and face: Calvarial bone marrow is normal in signal. Orbits are normal. Sinuses: There is a mucous retention cyst in the left maxillary sinus. The mastoids are clear. IMPRESSION: 1. No acute intracranial abnormalities. 2. Cerebral volume loss and chronic microvascular ischemic changes. 3. Left maxillary sinus mucous retention cyst. Dictated by: Adela Devries M.D. on 10/05/2016 at 10:39 Approved by: Adela Devries M.D. on 10/05/2016 at 10:46 PROCEDURE: CT ANGIO HEAD AND NECK (P) INDICATIONS: Stroke/TIA TECHNIQUE: Pre-contrast 4.5 mm thick sections acquired from the foramen magnum to the vertex. After the administration of intravenous contrast, 1 mm thick sections acquired from the aortic arch through the [place] of [place]. Post-contrast 4.5 mm thick sections then re-acquired from the foramen magnum to the vertex. 3- dimensional atvcbsu-tajqexhjj-rqweguoxpu (MIP) and/or volume rendering reformats were acquired of the central intracranial vasculature and neck separately. For radiation dose reduction, the following was used: automated exposure control, adjustment of mA and/or kV according to patient size. COMPARISON: None. FINDINGS: Image quality: Excellent. BRAIN: CSF spaces: Ventricles are normal in shape. Diffuse prominence of CSF space noted. Basal cisterns are patent. No extra-axial fluid collections. Brain: No midline shift. Periventricular and subcortical white matter chronic microvascular ischemic changes noted. No intracranial bleeds or masses. Perez- white matter interface appears intact. Skull and face: Calvarium and facial bones appear intact, without suspicious lesions. Orbits appear normal. Sinuses: Mucous retention cyst versus polyp is noted in the left maxillary sinus. The mastoids are clear. HEAD CT ANGIOGRAPHY: Anterior circulation: Intracranial internal carotid arteries are normal in size and flow. The flow within the paired anterior cerebral arteries is normal and symmetric. The flow within the middle cerebral arteries is normal and symmetric. The anterior communicating artery is seen. No aneurysms are seen. Posterior circulation: Visualized portions of the vertebral arteries demonstrate normal caliber, and join to form a normal appearing basilar artery. Flow within the posterior cerebral arteries is normal and symmetric. No aneurysms are seen. There is normal contrast enhancement of the dural sinuses. NECK CT ANGIOGRAPHY: Carotid system: The great vessels demonstrate a conventional anatomy as they arise from the aortic arch. The origins of the common carotid arteries appear patent. The common carotid arteries demonstrate normal caliber and courses. The bifurcation regions are both widely patent. Atherosclerotic calcifications noted in the origins of the left internal carotid artery causes less than 50% stenosis of the vessel. The right internal carotid artery appears fully patent. Posterior circulation: The origins of the vertebral arteries both appear widely patent. The more superior extracranial portions of both vertebral arteries also demonstrate normal courses and calibers. They join to form a normal appearing basilar artery. Soft tissues: Visualized neck soft tissues demonstrate no suspicious abnormalities. Bones: No suspicious bony lesions. Degenerative disc disease and facet arthropathy are noted in the visualized spine. Visualized cervical spine appears normally aligned. IMPRESSION: No hemodynamically significant vascular stenosis. No vascular occlusion. ECG 12 Lead Normal sinus rhythm with rate of 65 Cardiac Echo Impression Echocardiogram was difficult to schedule as inpatient and patient will be having an urgent echocardiogram done October 07 at 1 PM. Brief History This is an 81-year-old male who is speaking only. 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 History of type II diabetes hypertension hyperlipidemia. He is not exactly compliant with his medications. He did have a history of a subdural hematoma in 2003 and an intra-parenchymal hypertensive hemorrhage in 2012 he was at [facility] for his usual appointment for medication renewals and was unable to answer questions appropriately. He notes that that words would not come out. He also felt a little bit confused. He also felt somewhat lightheaded but not vertiginous. This lasted for about 3 hours. He was brought into the emergency room from [facility]. He has not been taking aspirin. He apparently has not been taking his lisinopril or metformin either as he has not been able to get it filled through [facility]. His evaluation in the emergency room includes CT of head without contrast shows no acute intracranial abnormality. There was noted age-related atrophy and chronic deep white matter ischemic changes which are appearing unchanged from previous. He also admits to a slight headache but this is improving. Hospital Course # Possible TIA, present on admission, symptoms resolved Check CTA of brain and neck, MRI brain without contrast, echocardiogram. Placed on telemetry. Check fasting lipid panel. Initiate atorvastatin 40 mg by mouth daily and ASA 324 mg by mouth daily Awaiting results of CTA of head and neck and echocardiogram. # Type II diabetes, present on admission, chronic We will hold metformin as will get IV contrast dye. We will place on subcutaneous insulin lispro protocol Check 4 times a day blood sugars Check hemoglobin A1c and results are 7.8 so is elevated. # Hypertension, present on admission, chronic Will reinstitute his lisinopril 10 mg by mouth daily starting tomorrow # DVT prophylaxis Placed on subcutaneous Lovenox # CODE STATUS Patient is full code. Exam Vital Signs (Last) Date Time Temp Pulse Resp B/P Pulse Ox O2 Delivery O2 Flow Rate FiO2 10/06/16 08:03 36.9 67 138/72 96 Room Air 10/06/16 04:13 16 Exam Constitutional: Elderly man in no acute distress Head: Normocephalic atraumatic Chest: Clear to auscultation Cor: Regular rate and rhythm S1-S2 without murmur Abdomen: Soft nontender bowel sounds present Extremities: No pedal edema Neuro: Alert and oriented 3, motor and sensory are intact bilaterally Test 10/04/16 10:30 10/04/16 11:40 White Blood Count 7.1th/mm3 (3.8-10.1) Red Blood Count 4.98mil/mm3 (4.40-5.80) Hemoglobin 14.2g/dL (13.8-17.2) Hematocrit 43.0% (41.0-50.0) Mean Corpuscular Volume 86.3fL (81-100) Mean Corpuscular Hemoglobin 28.5pg (27.0-35.0) Mean Corpuscular Hemoglobin Concent 33.0% (32.0-37.0) Red Cell Distribution Width 13.4% (12.3-15.4) Platelet Count 253bil/L (150-400) Neutrophils (%) (Auto) 65.2% (40-74) Lymphocytes (%) (Auto) 23.4% (14-46) Monocytes (%) (Auto) 8.3% (4-12) Eosinophils (%) (Auto) 2.4% (0-5) Basophils (%) (Auto) 0.6% (0-3) Sodium Level 139mEq/L (134-144) Potassium Level 4.2mEq/L (3.5-5.2) Chloride Level 103mEq/L (97-108) Carbon Dioxide Level 23mmol/L (18-29) Blood Urea Nitrogen 13mg/dL (8-27) Creatinine 0.79mg/dL (0.76-1.27) Estimat Glomerular Filtration Rate 100mL/min (>59) Glucose Level 179mg/dL (60-99) Hemoglobin A1c 7.8% (4.8-5.6) Calcium Level 8.9mg/dL (8.5-10.1) Magnesium Level 1.7mg/dL (1.6-2.6) Total Bilirubin 1.0mg/dL (0.0-1.2) Aspartate Amino Transf (AST/SGOT) 19U/L (0-50) Alanine Aminotransferase (ALT/SGPT) 17U/L (0-44) Alkaline Phosphatase 128U/L (25-160) Troponin T < 0.010ug/L (0.0-0.011) Total Protein 6.8g/dL (6.4-8.4) Albumin 3.9g/dL (3.4-5.0) Triglycerides Level 116mg/dL (0-149) Cholesterol Level 149mg/dL (100-199) LDL Cholesterol, Calculated 83.800mg/dL (0-99) VLDL Cholesterol 23.200mg/dL HDL Cholesterol 42mg/dL (>39) Cholesterol/HDL Ratio 3.55 (0.0-4.4) Hold [place] Top Tube Received (Received) Urine Color Straw (YELLOW) Urine Appearance Hazy (CLEAR,HAZY) Urine pH 6.5 (5.0-8.0) Urine Specific [place] 1.010 (1.003-1.035) Urine Protein Negativemg/dL (NEG,TRACE) Urine Glucose (UA) Negativemg/dL (NEGATIVE) Urine Ketones Negativemg/dL (NEGATIVE) Urine Occult Blood Negative (NEGATIVE) Urine Nitrite Negative (NEGATIVE) Urine Bilirubin Negative (NEGATIVE) Urine Urobilinogen Normalmg/dL (NORMAL) Urine Leukocyte Esterase Negative (NEGATIVE) Urine RBC 0-2/hpf (0-2) Urine WBC 0-5/hpf (0-5) Urine Epithelial Cells Occasional/hpf (NONE-MOD) Urine Crystals None seen (NONE SEEN) Urine Bacteria None/hpf (NONE-FEW) Urine Hyaline Casts None/lpf (NONE) Urine Granular Casts None seen (NONE SEEN) Urine Waxy Casts None seen (NONE SEEN) Urine Red Blood Cell Casts None seen (NONE SEEN) Urine White Blood Cell Casts None seen (NONE SEEN) Urine Mucus None seen (None Seen) Urine Trichomonas None seen (NONE SEEN) Urine Yeast None (NONE SEEN) Urinalysis Comment None Urine Culture Reflexed Not indicated Discharge Medications Discharge Medications Aspirin Chew (Aspirin Chew) 81 Mg Chew 81 MG PO DAILY Prescribed by: GREER METCALF MD Atorvastatin Calcium (Atorvastatin Calcium) 40 Mg Tablet 40 MG PO HS Prescribed by: GREER METCALF MD Lisinopril (Zestril) 10 Mg Tablet 10 MG PO DAILY Prescribed by: GREER METCALF MD Metformin (Glucophage) 1,000 Mg Tablet 1,000 MG PO BID (Reported) Followup Plan Discharge Diet: Heart Healthy, Diabetic Discharge Activity: Other (as tolerated) Follow-up with PCP in: 1 week Time spent 60 minutes Greer Metcalf MD Oct 06, 2016 11:51
[2016-10-06 12:11] VITALS: BP 159/85; PULSE 78; RESP 18; O2SAT 95
--- NOTE | 2016-10-06 12:30 | NUR ---
Packing Room Inspector Called xray tech for discharge and awaiting xray tech.
--- NOTE | 2016-10-06 13:29 | NUR ---
Discharge Theatre Manager here AND REVIEWED DISCHARGE MEDICATIONS PER DOCTOR ORDERS AND DISCHARGE INSTRUCTIONS WITH CARE NOTES PROVIDED IN [facility]. PATIENT CALL PCP AND SCHEDULE APPOINTMENT WITH IN 1 WEEK. PATIENT UNDERSTANDS THAT OUTPATIENT ECHOCARDIOGRAM TOMORROW AT [facility] . PATIENT UNDERSTOOD DISCHARGE INSTRUCTIONS, MEDICATIONS, AND ECHOCARDIOGRAM FOR TOMORROW. DISCONTINUED IV WITH OUT DIFFICULTY. DENIES PAIN OR DISCOMFORT. BLOOD SUGAR 276. INSULIN GIVEN ORDERED AFTER LUNCH.
== END 2016-10-06 13:40 | disposition home or self-care (01) ==
LOC: SED 09:46 → MOC 12:50
PROVIDERS: ADMIT Specialist; ATTEND Specialist
DX: R41.0 Disorientation, unspecified (principal); R42 Dizziness and giddiness; R41.9 Unspecified symptoms and signs involving cognitive functions and awareness; E11.9 Type 2 diabetes mellitus without complications; Z79.84 Long term (current) use of oral hypoglycemic drugs; I10 Essential (primary) hypertension; E78.5 Hyperlipidemia, unspecified; G44.89 Other headache syndrome
CPT/HCPCS: 36415; 70450; 70496; 70498; 70551; 71010; 80053; 80061; 81000; 82948; 83036; 83735; 84484; 85025; 92610; 93005; 99285; G0378; G8996; G8997; G8998; J1650; J1815; Q9967

== ENCOUNTER 2017-01-20 05:49 | Emergency (ER) | payer MEDICARE, MEDICAID ==
[~2017-01-20] VITALS: Ht 157.5 cm; Wt 81.8 kg
[~2017-01-20 05:49] MED LIST: ASPI81TA3 PO; ATOR40TA69 PO; LISI-610 PO; METF1000 PO
[2017-01-20 05:55] VITALS: BP 178/89; PULSE 86; RESP 18; O2SAT 98
--- NOTE | 2017-01-20 06:06 | ED.REPORT ---
HPI-Headache Date of Service January 20, 2017 ED Provider: Dr. Elvia Pak The patient is a 81 year old male w/ a history of diabetes mellitus, hypertension, hyperlipidemia, chronic headaches, subdural hematoma in 2003, intraparenchymal hypertensive hemorrhage in 2012, and questionable medication compliance presents to the ED after waking up last night with a severe headache in his right temporal lobe. C/o associated nausea. The pt states that this headache is different then his other headaches. He denies any difference in speech, numbness, weakness, tingling, blurred vision, fever, chills, cough, chest pain, SOB and photosensitivity. He has been taking his usual medication. The pt was admitted for 2 days in October 2016 with a headache and concern for TIA. MRI and head CT were unremarkable at the time. The pt and his sister speak Yoruba and an office engineer is used. BP is 178/89. Sugar is 178. Nursing Notes Stated Complaint: HEADACHE Chief Complaint: Headache Nursing Notes Reviewed: Yes Allergies: Coded Allergies: No Known Allergies (Verified , 01/20/17) Scheduled Aspirin Chew (Aspirin Chew) 81 Mg Chew 81 MG PO DAILY Atorvastatin Calcium (Atorvastatin Calcium) 40 Mg Tablet 40 MG PO HS Lisinopril (Zestril) 10 Mg Tablet 10 MG PO DAILY Metformin (Glucophage) 1,000 Mg Tablet 1,000 MG PO BID General Time Seen by MD: 06:05 Chief Complaint Headache Hx Obtained From: Patient, Other family... 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 Arrived By: Walk-in Sudden in Onset?: Yes Onset Occurred: 1 - 4 hours ago Context of Onset: Other (sleeping) Symptom Duration: Since onset Location: : Temporal right Quality: Painful Severity: Current: Mild Associated with: Reports: Nausea Recent Healthcare: No recent doctor visit, No recent hospitalization Similar Sx Previous: Yes Past Medical History Past Medical History Chronic headache Subdural hematoma 2003 Intraparenchymal hypertensive hemorrhage 2012 Reports: Diabetes mellitus, Hyperlipidemia, Hypertension Past Surgical History brain surgery 2003 left sided cataract surgery Family History Noncontributory Smoking History Never Smoker Social History Alcohol Use: Denies alcohol use Drug Use: Denies drug use Other Social History: Good social support, Local resident Ambulatory Status Independent Review of Systems Constitutional: Denies: Chills, Fever Eyes: Denies: Blurred bilateral, Photophobia, Visual loss bilateral GI: Reports: Nausea Neurologic: Reports: Headache, Denies: Change LOC, Numbness, Slurred speech, Unable to speak, Weakness Complete sys rev & neg: except as marked. Respiratory: Denies: Non-productive cough, Shortness of breath Cardiovascular: Denies: Chest pain Physical Exam Initial Vital Signs Vital Signs (First) Date Time Temp Pulse Resp B/P Pulse Ox O2 Delivery O2 Flow Rate FiO2 01/20/17 05:55 36.4 86 18 178/89 98 Room Air Initial VS: Reviewed ENT: Mucous membranes moist Abdomen / GI: Soft, Non-tender, No guarding, No rebound, No distention Extremities: Vascular intact, Neuro intact, No swelling, No tenderness Skin: Warm, Dry General/Constitutional: Awake, Alert, Cooperative, Not toxic appearing appropriate Head / Eyes: Normocephalic cranial nerve exam normal no temporal artery pain no reproduceable pain w/ manipulation of skull pain in right TMJ but separate from head pain Neck: Atraumatic, Supple, No meningismus Neurologic: Oriented X3, Speech NL, No motor deficits neurologically non focal Respiratory / Chest: Atraumatic, Breath sounds NL, Breath sounds = bilat, No respiratory distress, No wheezing Cardiovascular: Heart rate NL, Regular rhythm, Heart sounds NL, No murmurs, No rubs good capillary refill no palpable distal pulses Lower Extremity / Pelvis / MS: Full range of motion warm feet right distal urrutia has 2 by 2 cm soft mass that looks like a lipoma Interpretation & Diagnostics Lab Results Interpretation Result Diagram: 01/20/17 0630 01/20/17 0630 Test 01/20/17 06:30 White Blood Count 10.3th/mm3 (3.8-10.1) Red Blood Count 4.70mil/mm3 (4.40-5.80) Hemoglobin 13.8g/dL (13.8-17.2) Hematocrit 40.8% (41.0-50.0) Mean Corpuscular Volume 86.8fL (81-100) Mean Corpuscular Hemoglobin 29.4pg (27.0-35.0) Mean Corpuscular Hemoglobin Concent 33.8% (32.0-37.0) Red Cell Distribution Width 13.7% (12.3-15.4) Platelet Count 202bil/L (150-400) Neutrophils (%) (Auto) 77.6% (40-74) Lymphocytes (%) (Auto) 14.9% (14-46) Monocytes (%) (Auto) 5.9% (4-12) Eosinophils (%) (Auto) 1.3% (0-5) Basophils (%) (Auto) 0.3% (0-3) Hold Purple Top Tube Received (Received) Hold Blue Top Tube Received (Received) Sodium Level 140mEq/L (134-144) Potassium Level 4.6mEq/L (3.5-5.2) Chloride Level 101mEq/L (97-108) Carbon Dioxide Level 24mmol/L (18-29) Blood Urea Nitrogen 16mg/dL (8-27) Creatinine 0.68mg/dL (0.76-1.27) Estimat Glomerular Filtration Rate 119mL/min (>59) Glucose Level 221mg/dL (60-99) Calcium Level 9.1mg/dL (8.5-10.1) Hold [place] Top Tube Received (Received) Hold [place] Top Tube Received (Received) CT Head Interpretation IMPRESSION: Loss of the anterior right temporal lobe the pastor-white matter differentiation compatible with artifact versus early acute infarct. Recommend MRI without contrast of the brain for further evaluation. Dictated by: Sherie Clifford MD, PhD on 01/20/2017 at 7:49 Approved by: Sherie Clifford MD, PhD on 01/20/2017 at 7:54 Study: Head CT no contrast Interpretation / Wet Read by: Interpret - Radiologist Re-Eval/Medical Decision Med Decision/Clinical Course Due to acute onset of severe head pain and the history of prior strokes intracranial bleed and subdural hematomas to head CT scan was done and was unremarkable. There was a question of slight changes appreciated by radiology reviewed to previous exam felt that it was most likely artifact but could not be entirely clear. When correlated with clinical exam there is no evidence of stroke. After fluid nausea medication small dose of Haldol small dose of Dilaudid patient is quite literally walking up and down the hallways, laughing with nurses, jovial and showing no signs of pain nor acute stroke symptoms. Re-Evaluation/Progress #1: Time of Eval: 06:26 Re-Evaluation/Progress Note: Plan for nausea medication, fluid through IV, and pain medication. Pt understands and agrees with plan. Re-Evaluation/Progress #2: Time of Eval: 09:05 )( Patient Status: Pain resolved Re-Evaluation/Progress Note: Pt rechecked. He is completely pain free. CT does not show any evidence of stroke. Plan for discharge. Consultation : Referral / Consult Name: Sherie Clifford MD, PhD Call Returned at: 08:13 Note: Case discussed with radiology. Discussed head CT read. Dr. Clifford confirms that it is likely an artifact but different compared to MRI done in October. Aside from the pain is doesn't correlate clinically. Counseled Regarding: Diagnosis, Lab results, Need for follow-up, When/why to return to ED Discharge & Departure Impression: Primary Impression: Headache Headache type: unspecified Headache chronicity pattern: acute headache Intractability: not intractable Qualified Code: R51 - Headache Disposition: Home Discharge Condition All VS Reviewed: Yes Condition: Stable Patient Instructions: Acute Headache (ED) Additional Instructions: You did not have a stroke. Take Tylenol and Ibuprofen for pain. Follow up with your primary care physician as needed. Please return to the Emergency Department for any new or worsening symptoms. I hope you feel better soon! No tienes un accidente cerebrovascular. [place] Tylenol e ibuprofeno para el dolor. Seguimiento con mishra mdico de atencin primaria segn sea necesario. Por favor devuelva a urgencias de algn sntoma nueva o que empeora. Espero que se sienta mejor pronto! Referrals: Romaine Cunningham MD (PCP) Scribe Attestation Portion of this note were transcribed by Kim Rajan. I, Dr. Elvia Pak, personally performed the history, physical exam, and medical decision-making: I reviewed and confirmed the accuracy for the information in the transcribed note. Signed by: ozzie Thomas, 01/20/17 0800 copies to: Romaine Cunningham MD, Shawna L MD January 20, 2017 06:06 Kim Rajan January 20, 2017 06:17
[2017-01-20] MEDS ORDERED: Haloperidol 5 mg/mL Inj IVPUSH ONE (07:15)
[2017-01-20] MEDS ORDERED: Ondansetron 2 mg/mL 2 mL Inj IVPUSH ONE (07:15)
[2017-01-20] MEDS ORDERED: HYDROmorphone 1 mg/mL Inj IVPUSH PRN (07:15)
[2017-01-20] MEDS ORDERED: HYDROmorphone 1 mg/mL Inj IVPUSH ONE (07:15)
[2017-01-20 07:31] LABS: BASOPHILS % (AUTO) 0.3 % (0-3); EOSINOPHILS % (AUTO) 1.3 % (0-5); MONOCYTES % (AUTO) 5.9 % (4-12); Mean Corpuscular Hemoglobin 29.4 pg (27.0-35.0); Mean Corpuscular Volume 86.8 fL (81-100); NEUTROPHILS % (AUTO) 77.6 % (40-74); Platelet Count 202 bil/L (150-400)
[2017-01-20 07:50] VITALS: BP 155/69; PULSE 81; RESP 12; O2SAT 97
--- NOTE | 2017-01-20 07:55 | DRSVH ---
PROCEDURE: CT BRAIN WITHOUT CONTRAST ([id number]) INDICATIONS: acute right temporal headache TECHNIQUE: Noncontrast 4.5 mm thick angled axial sections acquired from the foramen magnum to the vertex, with c oronal reformats. COMPARISON: [facility], MR, MR BRAIN WO CON, 10/05/2016, 9:20. [facility], C T, CT BRAIN WO CON, 10/04/2016, 11:05. FINDINGS: Image quality: Excellent. CSF spaces: Basal cisterns are patent. No extra-axial fluid collections. The ventricles are symmet jas in size and shape. Brain: No intracranial bleeds or masses. Loss of pastor-white matter differentiation noted in the ant erior-inferior right temporal lobe which could represent artifact versus early acute infarct. There i s cerebral volume loss for age, with resultant ventricular and sulcal prominence. There are perivent ricular and deep white matter chronic small vessel ischemic changes. There is intracranial internal carotid artery atherosclerosis. Skull and face: Calvarium and visualized facial bones appear intact, without suspicious lesions. Sinuses: Mucous retention cyst versus polyp noted in the left maxillary sinus. mastoids are clear. IMPRESSION: Loss of the anterior right temporal lobe the pastor-white matter differentiation compatible with artifact versus early acute infarct. Recommend MRI without contrast of the brain for further ev aluation. Dictated by: Sherie Clifford MD, PhD on 01/20/2017 at 7:49 Approved by: Sherie Clifford MD, PhD on 01/20/2017 at 7:54
[2017-01-20 09:15] VITALS: BP 172/88; PULSE 103; O2SAT 96
[2017-01-20 09:19] VITALS: BP 172/88; PULSE 103; O2SAT 96
== END 2017-01-20 09:30 | disposition home or self-care (01) ==
LOC: SED 05:49
DX: R51 Headache (principal); R11.0 Nausea; I10 Essential (primary) hypertension; E11.9 Type 2 diabetes mellitus without complications; E78.5 Hyperlipidemia, unspecified; Z79.82 Long term (current) use of aspirin; Z79.84 Long term (current) use of oral hypoglycemic drugs
CPT/HCPCS: 36415; 70450; 80048; 82948; 85025; 96374; 96375; 99285; J1170; J1630; J2405